=== PATIENT | male | born 1940 | race Caucasian/White ===

== ENCOUNTER 2019-12-23 14:10 | Emergency (ER) | payer MEDICARE ==
[~2019-12-23] VITALS: Ht 175.3 cm; Wt 70.3 kg
[2019-12-23] MEDS ORDERED: TETANUS/DIPHTHERIA TOX ADULT 0.5 ML SYR IM STA (14:54)
[2019-12-23] MEDS ORDERED: MUPIROCIN 2% OINT 22 GM TUBE TOP ONE (15:00)
[2019-12-23] MEDS ORDERED: CEPHALEXIN500 MG PO (15:05)
[2019-12-23] MEDS ORDERED: MUPIROCIN22 GM TOP (15:05)
--- NOTE | 2019-12-23 15:06 | Emergency Department Note ---
History of Present Illnes History of Present Illness History of Present Illness This is a 79 year old male hx of acid reflux, playing baseball, got struck by the ball onto the right forearm, c/o right forearm pain, has a large skin avulsion on that site. . Historian: Patient Arrival Mode: Car Digital Marketing Specialist Required: No Onset (how long ago): hour(s) Radiation: Reports non-radiation Duration (how long): hour(s) Progression: unchanged Chronicity: new Relieving factors: none Exacerbating factors: none Associated symptoms: Reports denies other symptoms Treatments prior to arrival: none Past Medical/Family History Physician Review I have reviewed the patient's past medical and family history. Any updates have been documented here. Past Medical History Recent Fever: No Clinical Suspicion of Infectio: No New/Unexplained Change in Ment: No Past Medical History: GERD Past Surgical History: None Social History Smoking Cessation: Never Smoker Alcohol Use: None Any Illegal Drug Use: No TB Exposure/Symptoms: No Physically hurt or threatened: No Family History Family history of heart diseas: No Other Last Tetanus: 10 years or more Any Pre-Existing Lines (PICC,: No Review of Systems Review of Systems Constitutional: Reports no symptoms EENTM: Reports no symptoms Cardiovascular: Reports no symptoms Respiratory: Reports no symptoms Gastrointestinal: Reports no symptoms Genitourinary: Reports no symptoms Musculoskeletal: Reports no symptoms Integumentary: Reports as per HPI Neurological: Reports no symptoms Psychological: Reports no symptoms Endocrine: Reports no symptoms Hematological/Lymphatic: Reports no symptoms Physical Exam Related Data Allergies: Coded Allergies: Penicillins (Verified Allergy, Intermediate, rash/hives/lip swelling, 12/23/19) Vital signs reviewed: Yes Physical Exam CONSTITUTIONAL Constitutional: Reports well-developed, Reports well-nourished HENT HENT: Reports normocephalic, Reports atraumatic, Reports oropharynx clear/moist, Reports nose normal HENT L/R: Reports left ext ear normal, Reports right ext ear normal EYES Eyes: Reports PERRL, Reports conjunctivae normal NECK Neck: Reports ROM normal PULMONARY Pulmonary: Reports effort normal, Reports breath sounds normal CARDIOVASCULAR Cardiovascular: Reports regular rhythm, Reports heart sounds normal, Reports capillary refill normal, Reports normal rate GASTROINTESTINAL Abdominal: Reports soft, Reports nontender, Reports bowel sounds normal GENITOURINARY Genitourinary: Reports exam deferred SKIN Skin: Reports warm, Reports dry, Reports other (modrate size skin tear right forearm laterally 6 x 4 cm) MUSCULOSKELETAL Musculoskeletal: Reports ROM normal NEUROLOGICAL Neurological: Reports alert, Reports oriented x 3, Reports no gross motor or sensory deficits PSYCHOLOGICAL Psychological: Reports mood/affect normal, Reports judgement normal Assessment & Plan Medical Decision Making MDM skin avulsion, basically wound care Assessment & Plan Final Impression: (1) Acute pain due to trauma (2) Avulsion of skin of forearm Depart Disposition: HOME, SELF-residential Meds Active Scripts Mupirocin (MUPIROCIN) 22 Gm Oint...g., 22 GM TOP BID for 10 Days, EACH Prov:ERIC ESCALONA MD 12/23/19 Cephalexin (CEPHALEXIN) 500 Mg Capsule, 500 MG PO QID for 7 Days, #28 CAP Prov:ERIC ESCALONA MD 12/23/19 Medications in the ED bacitracin ERIC ESCALONA MD Dec 23, 2019 15:06
[2019-12-23] MEDS ORDERED: BACITRACIN ZINC 0.9GM TP ONE (15:19)
[2019-12-23] MEDS ORDERED: TETANUS/DIPHTHERIA TOX ADULT 0.5 ML SYR ONE (15:19)
[2019-12-23 15:47] VITALS: BP 131/74
== END 2019-12-23 15:50 | disposition home or self-care (01) ==
LOC: FSED 14:10
DX: M79.631 Pain in right forearm (principal); S51.811A Laceration without foreign body of right forearm, initial encounter; W21.03XA Struck by baseball, initial encounter; Y93.64 Activity, baseball; K21.9 Gastro-esophageal reflux disease without esophagitis
CPT/HCPCS: 90471; 90714; 96372; 99283